=== PATIENT | female | born 1980 | race Two or more races ===

== ENCOUNTER → 2023-06-11 | Emergency (ER) | payer OTHER ==
[~2023-06-11] VITALS: Ht 167.6 cm; Wt 68.0 kg
[~2023-06-11] MED LIST: ADVIL DUAL ACT1 EACH PO; NO TOMA MEDICAMENTOS
== END | disposition home or self-care (01) ==
LOC: ER 16:39
DX: M25.561 Pain in right knee (principal); M25.551 Pain in right hip

== ENCOUNTER 2023-06-12 10:34 | Outpatient (CLI) | payer OTHER | END 2023-06-12 10:47 | disposition home or self-care (01) | LOC: MAMO-SONO 10:34 | PROVIDERS: ATTEND Obstetrics & Gynecology | DX: Z12.31 Encounter for screening mammogram for malignant neoplasm of breast (principal); N64.4 Mastodynia; N63.0 Unspecified lump in unspecified breast; R10.2 Pelvic and perineal pain; N92.1 Excessive and frequent menstruation with irregular cycle ==

== ENCOUNTER → 2023-06-23 | Outpatient (CLI) | payer OTHER | END | disposition home or self-care (01) | LOC: MRI 10:32 | PROVIDERS: ATTEND Emergency Medicine | DX: M22.40 Chondromalacia patellae, unspecified knee (principal); M25.569 Pain in unspecified knee | CPT/HCPCS: 73721 ==